=== PATIENT | female | born 1995 | race Caucasian/White ===

== ENCOUNTER 2023-09-21 16:42 | Inpatient (IN) | payer BC ==
[2023-09-21] MEDS ORDERED: Citric Acid/Sodium Citrate Solution 30 ML Cup PO ONE (17:01)
[2023-09-21] MEDS ORDERED: Sodium Chloride 0.9% 10 ML Syringe FLUSH PRN (17:01)
[2023-09-21] MEDS ORDERED: Sodium Chloride 0.9% 2.5 ML Syringe FLUSH PRN (17:01)
[2023-09-21] MEDS ORDERED: Sodium Chloride 0.9% 20 ML SDV IV PRN (17:01)
[2023-09-21] MEDS ORDERED: Oxytocin/0.9 % Sodium Chloride 30 UNIT/500 ML BAG IV SCH ×2 (17:15→19:00)
[2023-09-21] MEDS ORDERED: Lactated Ringers 1,000 ML IV SCH ×2 (17:15→19:00)
[2023-09-21] MEDS ORDERED: ceFAZolin 1 GM Vial ONE (17:39)
[2023-09-21] MEDS ORDERED: ePHEDrine 50 MG/ML SDV ONE (17:39)
[2023-09-21] MEDS ORDERED: Oxytocin 10 Units/1 ML SDV ONE (17:39)
[2023-09-21] MEDS ORDERED: Ropivacaine 0.5% 5 MG/ML 30 ML SDV ONE (17:39)
[2023-09-21] MEDS ORDERED: Ketorolac 30 MG/ML SDV ONE (17:39)
[2023-09-21] MEDS ORDERED: fentaNYL 100 MCG/2 ML SDV ONE (17:39)
[2023-09-21] MEDS ORDERED: Morphine PF 10 MG/10 ML SDV ONE (17:39)
[2023-09-21] MEDS ORDERED: Bupivacaine 0.25% 30 ML SDV ONE (17:39)
[2023-09-21] MEDS ORDERED: Ondansetron 4 MG/2 ML SDV ONE (17:39)
[2023-09-21 17:45] LABS: HEMATOCRIT 37.7 % (37.0-47.0); MEAN CORPUSCULAR HEMOGLOBIN 26.8 pg (28.0-32.0); MEAN CORPUSCULAR HGB CONC 31.8 g/dL (32.0-36.0); MEAN CORPUSCULAR VOLUME 84.3 fL (83.0-99.0); MEAN PLATELET VOLUME 11.9 fL (9.4-12.3); PLATELET COUNT,PLT 220 K/uL (150-400); RED BLOOD CELL COUNT 4.47 M/uL (4.10-5.30); WHITE BLOOD CELL COUNT,WBC 19.28 K/uL (3.9-11.3)
[2023-09-21] MEDS ORDERED: Azithromycin 500 MG Vial ONE (18:26)
[2023-09-21] MEDS ORDERED: Acetaminophen 500 MG Tab PO PRN (18:52)
[2023-09-21] MEDS ORDERED: Ondansetron 4 MG/2 ML SDV IVPUSH PRN ×3 (18:52→19:11)
[2023-09-21] MEDS ORDERED: oxyCODONE 5 MG Tab PO PRN (18:52)
[2023-09-21] MEDS ORDERED: Oxytocin 10 Units/1 ML SDV IM PRN (18:52)
[2023-09-21] MEDS ORDERED: Methylergonovine 0.2 MG/1 ML Amp IM PRN (18:52)
[2023-09-21] MEDS ORDERED: Lanolin 100% Cream 7 GM Tube TOP PRN (18:52)
[2023-09-21] MEDS ORDERED: diphenhydrAMINE 50 MG/ML SDV IVPUSH PRN (18:52)
[2023-09-21] MEDS ORDERED: Ibuprofen 800 MG Tab PO PRN (18:52)
[2023-09-21] MEDS ORDERED: Misoprostol 200 MCG Tab RECTAL PRN (18:52)
[2023-09-21] MEDS ORDERED: Bisacodyl 10 MG Supp RECTAL PRN (18:52)
[2023-09-21] MEDS ORDERED: Metoclopramide 10 MG/2 ML SDV IVPUSH PRN (19:11)
[2023-09-21] MEDS ORDERED: Naloxone 0.4 MG/ML SDV IVPUSH PRN (19:11)
[2023-09-21] MEDS ORDERED: Acetaminophen/oxyCODONE 325-5 MG Tab PO PRN (19:11)
[2023-09-21] MEDS ORDERED: Albuterol 0.083% 2.5 MG/3 ML Neb Soln NEB PRN (19:11)
[2023-09-21] MEDS ORDERED: droPERidol 5 MG/2 ML SDV IVPUSH PRN (19:11)
[2023-09-21] MEDS ORDERED: fentaNYL 50 MCG/ML SDV IVPUSH PRN (19:11)
[2023-09-21] MEDS ORDERED: HYDROmorphone 1 MG/ML Syringe IVPUSH PRN (19:11)
[2023-09-21] MEDS ORDERED: Morphine 2 MG/ML SYRINGE IVPUSH PRN (19:11)
[2023-09-21] MEDS ORDERED: fentaNYL 100 MCG/2 ML SDV IVPUSH PRN (19:11)
[2023-09-21] MEDS ORDERED: ePHEDrine 50 MG/ML SDV IVPUSH PRN (19:11)
[2023-09-21 19:54] LABS: PH,UMBILICAL ARTERIAL 7.228 (7.18-7.38); PH,UMBILICAL VENOUS 7.3 (7.25-7.45)
[2023-09-21] MEDS: Acetaminophen 1,000 MG in Premix Bag 1 BAG IV SCH (20:56)
[2023-09-21] MEDS: Docusate Sodium 100 MG Cap PO SCH (20:56)
[2023-09-22] MEDS: Ketorolac 30 MG/ML SDV IVPUSH SCH ×2 (01:00→07:19)
[2023-09-22] MEDS: Acetaminophen 1,000 MG in Premix Bag 1 BAG IV SCH ×2 (03:03→08:25)
[2023-09-22] MEDS: diphenhydrAMINE 50 MG/ML SDV IVPUSH PRN ×2 (04:11→07:17)
[2023-09-22 06:13] LABS: HEMATOCRIT 30.8 % (37.0-47.0)
[2023-09-22] MEDS: Docusate Sodium 100 MG Cap PO SCH (08:24)
[2023-09-22] MEDS ORDERED: IRON CARB PO SCH (09:00)
[2023-09-22] MEDS ORDERED: Prenatal Multivitamin with Calcium/Folic Acid/Iron Tab PO SCH (09:00)
[2023-09-22] MEDS ORDERED: [UNRECOGNIZED DRUG - OTHER] PO SCH (09:00)
[2023-09-22] MEDS ORDERED: FOLIC PO SCH (09:00)
[2023-09-22] MEDS ORDERED: VIT B12 PO SCH (09:00)
[2023-09-22] MEDS ORDERED: VIT C PO SCH (09:00)
[2023-09-22] MEDS ORDERED: Ketorolac 30 MG/ML SDV IM PRN ×2 (10:04→13:00)
[2023-09-22] MEDS: Acetaminophen 500 MG Tab PO SCH ×3 (10:26→16:28)
[2023-09-22] MEDS ORDERED: Simethicone 80 MG Tab.Chew PO ONE (12:40)
[2023-09-22 15:35] LABS: GROUP B STREP BY PCR POSITIVE (NEGATIVE)
== END 2023-09-22 16:35 | disposition home or self-care (01) | DRG 540 ==
LOC: MW.OBCHECK 16:42 → MW.OB 16:45 → MW.OBCHECK 17:00 → MW.OB 17:01 → OBSVTOIN 18:01 → MW.OB 20:48
PROVIDERS: ADMIT Obstetrics & Gynecology; ATTEND Obstetrics & Gynecology
PROC: 10D00Z1 Extraction of Products of Conception, Low, Open Approach (ICD-10-PCS; principal; 2023-09-21 18:00)
DX: O42.913 Preterm premature rupture of membranes, unspecified as to length of time between rupture and onset of labor, third trimester (principal); Z37.0 Single live birth; O34.211 Maternal care for low transverse scar from previous cesarean delivery; O99.344 Other mental disorders complicating childbirth; F32.A Depression, unspecified; F41.9 Anxiety disorder, unspecified; Z3A.36 36 weeks gestation of pregnancy; Z90.49 Acquired absence of other specified parts of digestive tract; Z98.890 Other specified postprocedural states
CPT/HCPCS: 36415; 59025; 82803; 84112; 85014; 85018; 85027; 86592; 86850; 86900; 86901; 87653; A9270-GY; J0131; J0456; J0665; J0690; J1100; J1200; J1885; J2274; J2405; J2590; J2795; J3010; J3490; J7120